=== PATIENT | female | born 1965 | race Asian ===

== ENCOUNTER → 2017-03-09 | Outpatient (CLI) | payer OTHER | LOC: FIMAGING 11:52 | PROVIDERS: ATTEND Internal Medicine | DX: Z12.31 Encounter for screening mammogram for malignant neoplasm of breast (principal) | CPT/HCPCS: G0202 ==

== ENCOUNTER → 2018-04-28 | Outpatient (CLI) | payer OTHER | LOC: FIMAGING 11:54 | PROVIDERS: ATTEND Internal Medicine | DX: Z12.31 Encounter for screening mammogram for malignant neoplasm of breast (principal); Z13.820 Encounter for screening for osteoporosis; Z78.0 Asymptomatic menopausal state; M85.89 Other specified disorders of bone density and structure, multiple sites ==

== ENCOUNTER 2018-11-16 14:00 | Emergency (ER) | payer OTHER ==
[2018-11-16] MEDS ORDERED: NS 1,000 ML IV ONE (14:06)
--- NOTE | 2018-11-16 14:07 | EDPHY ---
HPI/HX/ROS/PE/MDM Narrative: CHIEF COMPLAINT: Left flank pain HPI: This patient is a 52 y/o female with history of hypothyroidism. She arrives today with her complaining of left flank pain. This began Thursday night and was mild. Yesterday at work she felt alright, but by evening, she had a recurrent sensation of discomfort and tightness in her flank. Today, the pain is much more severe. It is somewhat left-sided, about the level of the top of her lumbar spine. She endorses some radiation anteriorly. Her supervisor edging at work encouraged her to be evaluated here in the emergency department due to the severity of symptoms. The patient denies dysuria or hematuria. No shortness of breath, nausea, vomiting, diarrhea, or other associated symptoms. REVIEW OF SYSTEMS: A comprehensive 10 system review of systems is otherwise negative aside from elements mentioned in the history of present illness and medical decision making. PMH: Hypothyroidism. SOCIAL HISTORY: Employed, works for [employer]. . at bedside. PHYSICAL EXAM: General:Patient is alert, in no acute distress. ENT:Eyes are normal to inspection. ENT inspection normal. Neck: Normal inspection. Full range of motion. Respiratory:No respiratory distress. Breath sounds normal bilaterally. Cardiovascular: Regular rate and rhythm. Strong peripheral pulses. Normal cap refill. Abdomen:The abdomen is nontender to palpation. There are no peritoneal signs. There are normal bowel sounds. Back: Normal to inspection. No tenderness to palpation. Skin: Normal color. No rash. Warm and dry. Extremities: Normal appearance. Full range of motion. Neuro: Oriented x3. Normal motor function. Normal sensory function. (Carlyle De Anda) ED Course: 52 y/o female presents with left flank pain worsening since Thursday night. No tenderness on exam. Plan for IV, labs including CBC, chemistries, UA. Plan to administer 1L IV NS. Plan to administer 15mg IV Ketorolac for pain relief. UA shows trace bacteria and leuk esterase. Reassessed. Plan for CT abdomen/pelvis for further evaluation. (Carlyle De Anda) MDM: I assumed care of the patient at 3pm. The patient's CT scan demonstrates no evidence of an obstructive uropathy. I re-evaluated the patient personally at 4:00 p.m. Informing her of the workup. At this point time working diagnosis is 1 of musculoskeletal pain. Plan will be for ibuprofen 600 mg 3 times a day. Patient is discharged home with customary aftercare instructions and return precautions. (Christian Dalton) - Data Points Imaging Results: Imaging Impressions Abdomen CT 11/16/18 15:01 Impression: 1. No evidence of abdominopelvic inflammatory mass or ascites. 2. 2 mm nonobstructing left nephrolithiasis. 3. Incompetent left gonadal vein and prominent periuterine veins which can be seen pelvic congestion syndrome. Timmy Dalton was notified of these findings by telephone at 3:50 PM on 11/16/2018 Laboratory Results: Laboratory Results 11/16/18 14:10 11/16/18 14:10 11/16/18 11/16/18 11/16/18 14:42 14:10 14:10 WBC 5.74 10^3/uL 10^3/uL (3.80-9.50) RBC 4.30 10^6/uL 10^6/uL (4.18-5.33) Hgb 11.8 g/dL L g/dL (12.6-16.3) Hct 37.2 % L % (38.0-47.0) MCV 86.5 fL fL (81.5-99.8) MCH 27.4 pg L pg (27.9-34.1) MCHC 31.7 g/dL L g/dL (32.4-36.7) RDW 14.2 % % (11.5-15.2) Plt Count 145 10^3/uL L 10^3/uL (150-400) MPV TNP Neut % (Auto) 57.4 % % (39.3-74.2) Lymph % (Auto) 30.7 % % (15.0-45.0) Randolph % (Auto) 8.9 % % (4.5-13.0) Eos % (Auto) 2.3 % % (0.6-7.6) Baso % (Auto) 0.5 % % (0.3-1.7) Nucleat RBC Rel Count 0.0 % % (0.0-0.2) Absolute Neuts (auto) 3.30 10^3/uL 10^3/uL (1.70-6.50) Absolute Lymphs (auto) 1.76 10^3/uL 10^3/uL (1.00-3.00) Absolute Monos (auto) 0.51 10^3/uL 10^3/uL (0.30-0.80) Absolute Eos (auto) 0.13 10^3/uL 10^3/uL (0.03-0.40) Absolute Basos (auto) 0.03 10^3/uL 10^3/uL (0.02-0.10) Absolute Nucleated RBC 0.00 10^3/uL 10^3/uL (0-0.01) Immature Gran % 0.2 % % (0.0-1.1) Immature Gran # 0.01 10^3/uL 10^3/uL (0.00-0.10) Sodium 138 mEq/L mEq/L (135-145) Potassium 4.0 mEq/L mEq/L (3.5-5.2) Chloride 106 mEq/L mEq/L (97-110) Carbon Dioxide 24 mEq/l mEq/l (22-31) Anion Gap 8 mEq/L mEq/L (6-14) BUN 15 mg/dL mg/dL (7-23) Creatinine 0.8 mg/dL mg/dL (0.6-1.0) Estimated GFR > 60 Glucose 104 mg/dL H mg/dL (70-100) Calcium 9.3 mg/dL mg/dL (8.5-10.4) Urine Color COLORLESS Urine Appearance CLEAR Urine pH 8.0 H (5.0-7.5) Ur Specific [place] 1.003 (1.002-1.030) Urine Protein NEGATIVE (NEGATIVE) Urine Ketones NEGATIVE (NEGATIVE) Urine Blood NEGATIVE (NEGATIVE) Urine Nitrate NEGATIVE (NEGATIVE) Urine Bilirubin NEGATIVE (NEGATIVE) Urine Urobilinogen NEGATIVE EU EU (0.2-1.0) Ur Leukocyte Esterase TRACE H (NEGATIVE) Urine RBC NONE SEEN /hpf /hpf (0-3) Urine WBC 1-3 /hpf /hpf (0-3) Ur Epithelial Cells TRACE /lpf /lpf (NONE-1+) Urine Bacteria TRACE /hpf H /hpf (NONE SEEN) Urine Glucose NEGATIVE (NEGATIVE) Medications Given: Discontinued Medications Sodium Chloride (Ns) 1,000 mls @ 0 mls/hr IV EDNOW ONE; Wide Open PRN Reason: Protocol Stop: 11/16/18 14:07 Last Admin: 11/16/18 14:16 Dose: 1,000 mls Ketorolac Tromethamine (Toradol) 15 mg IVP EDNOW ONE Stop: 11/16/18 14:37 Last Admin: 11/16/18 14:53 Dose: 15 mg General Initial Vital Signs: Initial Vital Signs Temperature (C) 36.6 C 11/16/18 14:11 Heart Rate 72 11/16/18 14:11 Respiratory Rate 18 11/16/18 14:11 Blood Pressure 147/71 H 11/16/18 14:11 O2 Sat (%) 97 11/16/18 14:11 O2 Delivery Mode Room Air Allergies/Adverse Reactions: No Known Allergies Allergy (Verified 11/16/18 14:11) Home Medications: Medication Instructions Recorded Control Pill PO DAILY 03/21/16 Ferosul PO HS 03/21/16 Herbal Drugs 03/21/16 Synthroid 100 mg PO DAILY06 03/21/16 Departure - Departure Disposition: Home, Routine, Self-Care Clinical Impression: Musculoskeletal pain Condition: Good Instructions: Musculoskeletal Pain (ED) Additional Instructions: 1. Take Ibuprofen or Motrin 600 mg by mouth three times a day. 2. Please return to the ED for markedly worsening pain or other concerns. 3. The workup in the emergency department today demonstrates no obvious explanation for your pain. Referrals: Rebeka Wagoner MD [Primary Care Provider] - As per Instructions Report Scribed for: Carlyle De Anda Report Scribed by: Jeanne Escobar Date of Report: 11/16/18 Time of Report: 14:08 Physician Review and Approval Statement: Portions of this note were transcribed by an ED scribe. I personally performed the history, physical exam, and medical decision making; and confirm the accuracy of the information in the transcribed note.
[2018-11-16 14:30] LABS: PLATELET COUNT 145 10^3/uL (150-400)
[2018-11-16] MEDS ORDERED: KETOROLAC 30 MG/1 ML SDV IVP ONE (14:36)
[2018-11-16] MEDS ORDERED: IOPAMIDOL (ISOVUE-300) 100 ML BTL ONE (15:10)
[2018-11-16 16:48] VITALS: BP 148/80
== END 2018-11-16 16:47 | disposition home or self-care (01) ==
DX: M79.18 Myalgia, other site (principal); E86.9 Volume depletion, unspecified; E03.9 Hypothyroidism, unspecified
CPT/HCPCS: 96374; J1885; Q9967